=== PATIENT | male | born 1950 | race African-American/Black ===

== ENCOUNTER 2016-12-31 08:16 | Emergency (ER) | payer MEDICARE ==
[~2016-12-31] VITALS: Ht 182.9 cm; Wt 91.0 kg
[2016-12-31] MEDS ORDERED: LABE100T PO (08:24)
[2016-12-31] MEDS ORDERED: OXYC-103 PO (08:24)
[2016-12-31] MEDS ORDERED: AMLO1TAB52 PO (08:24)
[2016-12-31] MEDS ORDERED: KETOROLAC 60MG/2ML VIAL IM ONE (10:15)
[2016-12-31 15:08] VITALS: BP 112/86
== END 2016-12-31 16:16 | disposition home or self-care (01) ==
LOC: ER 08:58
DX: S72.8X2A Other fracture of left femur, initial encounter for closed fracture (principal); M17.0 Bilateral primary osteoarthritis of knee; I10 Essential (primary) hypertension; J45.909 Unspecified asthma, uncomplicated; Z98.890 Other specified postprocedural states; Z96.652 Presence of left artificial knee joint; W01.0XXA Fall on same level from slipping, tripping and stumbling without subsequent striking against object, initial encounter; Y93.89 Activity, other specified; Y92.89 Other specified places as the place of occurrence of the external cause
CPT/HCPCS: 73502; 73552; 73560; 93970; 96372; 99284; J1885

== ENCOUNTER 2020-11-09 11:20 | Inpatient (IN) | payer MEDICARE ==
[~2020-11-09] VITALS: Ht 185.4 cm; Wt 80.7 kg
[~2020-11-09 11:20] MED LIST: AMLO-361 PO; LABE100T5 PO; OXYC-103 PO
[2020-11-09] MEDS ORDERED: SODIUM CHLORIDE 0.9% 1,000 ML IV ONE (11:45)
[2020-11-09] MEDS ORDERED: ONDANSETRON HCL 4MG/2ML INJ IV ONE (11:45)
[2020-11-09 12:26] LABS: CHLORIDE 104 mEq/L (98-107)
[2020-11-09 12:33] LABS: PROTHROMBIN TIME 10.9 sec (9.6-11.0)
[2020-11-09 12:35] LABS: BASOPHILS % 0.3 % (0.0-2.0); EOSINOPHILS % 0.2 % (0.0-5.0); HEMATOCRIT. 47.6 % (42.0-52.0); HEMOGLOBIN. 15.9 g/dL (14.0-18.0); LYMPHOCYTES % 12.5 % (20.0-50.0); MEAN CORPUSCULAR HEMOGLOBIN 31.4 pg (28.0-32.0); MEAN CORPUSCULAR VOLUME 93.8 fL (80.0-94.0); MEAN PLATELET VOLUME 12.7 fl (7.4-10.4); MONOCYTES % 6.4 % (2.0-8.0); NEUTROPHILS % 80.6 % (40.0-76.0); PLATELET 137 x1000/uL (130-400); RED BLOOD CELL COUNT 5.07 mill/uL (4.7-6.1); RED CELL DISTRIBUTION WIDTH 13.3 % (11.6-14.6)
[2020-11-09 12:49] LABS: DIGOXIN 0.1 ng/mL (0.9-2.0)
[2020-11-09 16:23] LABS: CLARITY URINE CLEAR (CLEAR); COLOR URINE YELLOW (YELLOW); KETONES URINE NEGATIVE (NEGATIVE); LEUKOCYTE ESTERASE URINE NEGATIVE (NEGATIVE); NITRITE URINE NEGATIVE (NEGATIVE); OCCULT BLOOD URINE NEGATIVE (NEGATIVE); PROTEIN URINE NEGATIVE (NEGATIVE); SPECIFIC GRAVITY URINE 1.019 (1.005-1.030)
[2020-11-09 17:03] LABS: *AMPHETAMINES SCREEN URINE NEGATIVE (NEGATIVE)
[2020-11-09 17:04] LABS: *BARBITURATES SCREEN URINE NEGATIVE (NEGATIVE); *BENZODIAZEPINES SCREEN URINE NEGATIVE (NEGATIVE); *COCAINE SCREEN URINE NEGATIVE (NEGATIVE); METHADONE URINE SCREEN NEGATIVE (NEGATIVE); OPIATES URINE SCREEN NEGATIVE (NEGATIVE); PHENCYCLIDINE URINE SCREEN NEGATIVE (NEGATIVE)
[2020-11-09 17:05] LABS: CANNABINOID URINE SCREEN NEGATIVE (NEGATIVE)
[2020-11-09] MEDS ORDERED: DOCUSATE SODIUM 100MG CAPSULE PO PRN (18:45)
[2020-11-09] MEDS ORDERED: IPRATROPIUM/ALBUTEROL 0.5-3(2.5)MG/3ML NEB HHN PRN (18:45)
[2020-11-09] MEDS: HYDROMORPHONE HCL/PF 2MG/ML CPJ IV PRN (19:55)
[2020-11-09] MEDS: TRIAMTERENE/HYDROCHLOROTHIAZID 75/50MG TABLET PO SCH (19:56)
[2020-11-09 21:05] VITALS: BP 162/79
[2020-11-09 21:35] VITALS: BP 162/79
[2020-11-09] MEDS: ENOXAPARIN 40MG/0.4ML SYR SUBCUT SCH (21:37)
[2020-11-10] VITALS (7 sets, daily range): BP systolic 121–160; BP diastolic 73–85
[2020-11-10] MEDS: HYDROMORPHONE HCL/PF 2MG/ML CPJ IV PRN ×2 (00:21→20:24)
[2020-11-10] MEDS ORDERED: IBUP-2437 MT (01:23)
[2020-11-10] MEDS ORDERED: DICL25TA2 PO (01:23)
[2020-11-10 07:21] LABS: BASOPHILS % 0.7 % (0.0-2.0); EOSINOPHILS % 0.2 % (0.0-5.0); HEMATOCRIT. 45.2 % (42.0-52.0); LYMPHOCYTES % 19.6 % (20.0-50.0); MEAN CORPUSCULAR HEMOGLOBIN 31.5 pg (28.0-32.0); MEAN CORPUSCULAR VOLUME 95.1 fL (80.0-94.0); MEAN PLATELET VOLUME 12.3 fl (7.4-10.4); MONOCYTES % 10.7 % (2.0-8.0); NEUTROPHILS % 68.8 % (40.0-76.0); PLATELET 113 x1000/uL (130-400); RED BLOOD CELL COUNT 4.75 mill/uL (4.7-6.1); RED CELL DISTRIBUTION WIDTH 13.7 % (11.6-14.6)
[2020-11-10 07:35] LABS: CHLORIDE 104 mEq/L (98-107)
[2020-11-10 07:59] LABS: VITAMIN B12 SERUM 1273 pg/mL (211-911)
[2020-11-10] MEDS: TRIAMTERENE/HYDROCHLOROTHIAZID 75/50MG TABLET PO SCH (08:58)
[2020-11-10] MEDS: LOSARTAN POTASSIUM 100 MG TABLET PO SCH (08:58)
[2020-11-10] MEDS: AMLODIPINE 10MG TABLET PO SCH (08:58)
[2020-11-10] MEDS: DEXT 5%/0.45% NACL 1000ML 1,000 ML IV SCH ×2 (11:06→23:30)
[2020-11-10] MEDS ORDERED: NALOXONE HCL 0.4MG/ML VIAL IV PRN (18:15)
[2020-11-10] MEDS: ENOXAPARIN 40MG/0.4ML SYR SUBCUT SCH (20:23)
[2020-11-10] MEDS: ONDANSETRON HCL 4MG/2ML INJ IV PRN (20:23)
[2020-11-10] MEDS: NEOMYCIN-POLYMYXIN-HYDROCORTISONE 1% OTIC SUSP 10ML LEFT EAR SCH (23:54)
[2020-11-11] VITALS (8 sets, daily range): BP systolic 136–155; BP diastolic 77–102
[2020-11-11] MEDS: HYDROMORPHONE HCL/PF 2MG/ML CPJ IV PRN ×2 (01:17→21:05)
[2020-11-11] MEDS: NEOMYCIN-POLYMYXIN-HYDROCORTISONE 1% OTIC SUSP 10ML LEFT EAR SCH ×3 (05:19→17:40)
[2020-11-11 05:34] LABS: BASOPHILS % 1.1 % (0.0-2.0); EOSINOPHILS % 1.2 % (0.0-5.0); HEMATOCRIT. 48.8 % (42.0-52.0); HEMOGLOBIN. 15.9 g/dL (14.0-18.0); LYMPHOCYTES % 26.7 % (20.0-50.0); MEAN CORPUSCULAR HEMOGLOBIN 30.9 pg (28.0-32.0); MEAN CORPUSCULAR VOLUME 94.5 fL (80.0-94.0); MEAN PLATELET VOLUME 12.4 fl (7.4-10.4); PLATELET 147 x1000/uL (130-400); RED BLOOD CELL COUNT 5.16 mill/uL (4.7-6.1); RED CELL DISTRIBUTION WIDTH 13.1 % (11.6-14.6)
[2020-11-11 05:44] LABS: CHLORIDE 98 mEq/L (98-107)
[2020-11-11] MEDS ORDERED: POTASSIUM CHLORIDE 20MEQ TABLET SR PO SCH (08:00)
[2020-11-11] MEDS: LOSARTAN POTASSIUM 100 MG TABLET PO SCH (08:35)
[2020-11-11] MEDS: TRIAMTERENE/HYDROCHLOROTHIAZID 75/50MG TABLET PO SCH (08:35)
[2020-11-11] MEDS: AMLODIPINE 10MG TABLET PO SCH (08:39)
[2020-11-11] MEDS: DEXT 5%/0.45% NACL 1000ML 1,000 ML IV SCH (12:28)
[2020-11-11] MEDS: ONDANSETRON HCL 4MG/2ML INJ IV PRN (18:52)
[2020-11-11] MEDS: VALACYCLOVIR HCL 500MG TABLET PO SCH (19:01)
[2020-11-11] MEDS: ENOXAPARIN 40MG/0.4ML SYR SUBCUT SCH (20:54)
[2020-11-11] MEDS: ACETAMINOPHEN 325MG TABLET PO PRN (21:04)
[2020-11-12] VITALS: BP 134/81
[2020-11-12] MEDS: NEOMYCIN-POLYMYXIN-HYDROCORTISONE 1% OTIC SUSP 10ML LEFT EAR SCH ×4 (00:43→18:10)
[2020-11-12] MEDS: DEXT 5%/0.45% NACL 1000ML 1,000 ML IV SCH ×2 (00:43→12:12)
[2020-11-12] MEDS: HYDROMORPHONE HCL/PF 2MG/ML CPJ IV PRN ×2 (00:51→19:58)
[2020-11-12] MEDS: VALACYCLOVIR HCL 500MG TABLET PO SCH ×3 (02:48→18:10)
[2020-11-12 03:58] VITALS: BP 164/73
[2020-11-12] MEDS: ACETAMINOPHEN 325MG TABLET PO PRN (06:00)
[2020-11-12 06:16] LABS: HEMATOCRIT. 47.4 % (42.0-52.0); HEMOGLOBIN. 16.2 g/dL (14.0-18.0); MEAN CORPUSCULAR HEMOGLOBIN 31.8 pg (28.0-32.0); MEAN CORPUSCULAR VOLUME 93.1 fL (80.0-94.0); MEAN PLATELET VOLUME 12.9 fl (7.4-10.4); PLATELET 154 x1000/uL (130-400); RED BLOOD CELL COUNT 5.09 mill/uL (4.7-6.1); RED CELL DISTRIBUTION WIDTH 13.2 % (11.6-14.6)
[2020-11-12 06:24] LABS: CHLORIDE 98 mEq/L (98-107)
[2020-11-12 08:00] VITALS: BP_SYST 126; BP_SYST 131; BP_SYST 147; BP_DIAS 78; BP_DIAS 80; BP_DIAS 85
[2020-11-12] MEDS: LOSARTAN POTASSIUM 100 MG TABLET PO SCH (09:00)
[2020-11-12] MEDS: TRIAMTERENE/HYDROCHLOROTHIAZID 75/50MG TABLET PO SCH (09:03)
[2020-11-12] MEDS: AMLODIPINE 10MG TABLET PO SCH (09:04)
[2020-11-12 11:50] LABS: PLATELET ESTIMATE NORMAL
[2020-11-12 12:00] VITALS: BP 129/71
[2020-11-12] MEDS: ONDANSETRON HCL 4MG/2ML INJ IV PRN ×3 (12:12→22:39)
[2020-11-12 16:00] VITALS: BP 127/76
[2020-11-12] MEDS: LEVOFLOXACIN 500MG PREMIX 100 ML IV SCH (18:10)
[2020-11-12 20:00] VITALS: BP 121/72
[2020-11-12] MEDS: ENOXAPARIN 40MG/0.4ML SYR SUBCUT SCH (20:03)
[2020-11-13] VITALS (8 sets, daily range): BP systolic 118–156; BP diastolic 64–83
[2020-11-13] MEDS: NEOMYCIN-POLYMYXIN-HYDROCORTISONE 1% OTIC SUSP 10ML LEFT EAR SCH ×4 (00:06→18:36)
[2020-11-13] MEDS: HYDROMORPHONE HCL/PF 2MG/ML CPJ IV PRN ×4 (00:10→21:14)
[2020-11-13] MEDS: DEXT 5%/0.45% NACL 1000ML 1,000 ML IV SCH ×2 (00:18→17:02)
[2020-11-13] MEDS: VALACYCLOVIR HCL 500MG TABLET PO SCH ×3 (03:52→18:36)
[2020-11-13] MEDS: ONDANSETRON HCL 4MG/2ML INJ IV PRN ×3 (04:22→21:04)
[2020-11-13 05:12] LABS: BASOPHILS % 0.4 % (0.0-2.0); EOSINOPHILS % 0.6 % (0.0-5.0); HEMATOCRIT. 46.8 % (42.0-52.0); HEMOGLOBIN. 15.8 g/dL (14.0-18.0); LYMPHOCYTES % 19.5 % (20.0-50.0); MEAN CORPUSCULAR HEMOGLOBIN 31.7 pg (28.0-32.0); MEAN CORPUSCULAR VOLUME 93.8 fL (80.0-94.0); MONOCYTES % 11.2 % (2.0-8.0); NEUTROPHILS % 68.3 % (40.0-76.0); PLATELET 156 x1000/uL (130-400); RED BLOOD CELL COUNT 4.99 mill/uL (4.7-6.1); RED CELL DISTRIBUTION WIDTH 13.3 % (11.6-14.6)
[2020-11-13 05:19] LABS: CHLORIDE 95 mEq/L (98-107)
[2020-11-13 05:36] LABS: HDL CHOLESTEROL 70 mg/dL (40-59)
[2020-11-13 05:37] LABS: LDL CHOLESTEROL 88 mg/dL (5-100)
[2020-11-13] MEDS: AMLODIPINE 10MG TABLET PO SCH (09:00)
[2020-11-13] MEDS: LOSARTAN POTASSIUM 100 MG TABLET PO SCH (09:00)
[2020-11-13] MEDS: TRIAMTERENE/HYDROCHLOROTHIAZID 75/50MG TABLET PO SCH (09:06)
[2020-11-13] MEDS: ACETAMINOPHEN 325MG TABLET PO PRN (09:09)
[2020-11-13] MEDS: LEVOFLOXACIN 500MG PREMIX 100 ML IV SCH (18:36)
[2020-11-13] MEDS: ENOXAPARIN 40MG/0.4ML SYR SUBCUT SCH (20:58)
[2020-11-14] VITALS (8 sets, daily range): BP systolic 108–158; BP diastolic 51–84
[2020-11-14] MEDS: NEOMYCIN-POLYMYXIN-HYDROCORTISONE 1% OTIC SUSP 10ML LEFT EAR SCH ×5 (00:38→23:49)
[2020-11-14] MEDS: DEXT 5%/0.45% NACL 1000ML 1,000 ML IV SCH ×2 (01:46→16:02)
[2020-11-14] MEDS: HYDROMORPHONE HCL/PF 2MG/ML CPJ IV PRN ×2 (03:25→16:43)
[2020-11-14] MEDS: VALACYCLOVIR HCL 500MG TABLET PO SCH ×3 (03:26→21:17)
[2020-11-14] MEDS: TRIAMTERENE/HYDROCHLOROTHIAZID 75/50MG TABLET PO SCH (09:31)
[2020-11-14] MEDS: AMLODIPINE 10MG TABLET PO SCH (09:32)
[2020-11-14] MEDS: LOSARTAN POTASSIUM 100 MG TABLET PO SCH (09:32)
[2020-11-14] MEDS: ONDANSETRON HCL 4MG/2ML INJ IV PRN ×2 (16:02→21:18)
[2020-11-14] MEDS: LEVOFLOXACIN 500MG PREMIX 100 ML IV SCH (18:00)
[2020-11-14] MEDS: CEFTRIAXONE 2 G in DEXTROSE 5% WATER 50 ML IV SCH (20:00)
[2020-11-14] MEDS: ENOXAPARIN 40MG/0.4ML SYR SUBCUT SCH (21:17)
[2020-11-15] VITALS (7 sets, daily range): BP systolic 105–145; BP diastolic 60–82
[2020-11-15] MEDS: VALACYCLOVIR HCL 500MG TABLET PO SCH ×3 (03:23→19:32)
[2020-11-15] MEDS: DEXT 5%/0.45% NACL 1000ML 1,000 ML IV SCH ×2 (03:24→19:02)
[2020-11-15] MEDS: ACETAMINOPHEN 325MG TABLET PO PRN ×2 (03:24→19:12)
[2020-11-15] MEDS: NEOMYCIN-POLYMYXIN-HYDROCORTISONE 1% OTIC SUSP 10ML LEFT EAR SCH ×3 (06:53→19:33)
[2020-11-15] MEDS: TRIAMTERENE/HYDROCHLOROTHIAZID 75/50MG TABLET PO SCH (08:06)
[2020-11-15] MEDS: LOSARTAN POTASSIUM 100 MG TABLET PO SCH (08:06)
[2020-11-15] MEDS: AMLODIPINE 10MG TABLET PO SCH (08:06)
[2020-11-15] MEDS ORDERED: LEVOFLOXACIN 500MG TABLET PO SCH (12:00)
[2020-11-15] MEDS: ENOXAPARIN 40MG/0.4ML SYR SUBCUT SCH (20:12)
[2020-11-15] MEDS: ONDANSETRON HCL 4MG/2ML INJ IV PRN (20:12)
[2020-11-15] MEDS: CEFTRIAXONE 2 G in DEXTROSE 5% WATER 50 ML IV SCH (20:12)
[2020-11-15] MEDS ORDERED: AMOX1TAB16 PO (20:53)
[2020-11-15] MEDS ORDERED: NEOM10DR11 LEFT EAR (20:53)
[2020-11-15] MEDS ORDERED: VALA100044 MT (20:53)
[2020-11-15] MEDS ORDERED: MECLIZINE 25MG TABLET PO PRN (22:30)
[2020-11-16 00:32] VITALS: BP 114/62
[2020-11-16] MEDS: NEOMYCIN-POLYMYXIN-HYDROCORTISONE 1% OTIC SUSP 10ML LEFT EAR SCH ×3 (00:51→11:31)
[2020-11-16] MEDS: ACETAMINOPHEN 325MG TABLET PO PRN (00:54)
[2020-11-16 04:00] VITALS: BP 120/68
[2020-11-16] MEDS: DEXT 5%/0.45% NACL 1000ML 1,000 ML IV SCH (05:27)
[2020-11-16] MEDS: VALACYCLOVIR HCL 500MG TABLET PO SCH ×2 (05:27→11:31)
[2020-11-16 08:00] VITALS: BP 120/75
[2020-11-16] MEDS: LOSARTAN POTASSIUM 100 MG TABLET PO SCH (08:46)
[2020-11-16] MEDS: TRIAMTERENE/HYDROCHLOROTHIAZID 75/50MG TABLET PO SCH (08:46)
[2020-11-16] MEDS: AMLODIPINE 10MG TABLET PO SCH (08:46)
[2020-11-16] MEDS: ONDANSETRON HCL 4MG/2ML INJ IV PRN (09:29)
[2020-11-16 11:12] LABS: HEMATOCRIT. 46.3 % (42.0-52.0); HEMOGLOBIN. 15.8 g/dL (14.0-18.0); MEAN CORPUSCULAR HEMOGLOBIN 31.7 pg (28.0-32.0); MEAN CORPUSCULAR VOLUME 92.7 fL (80.0-94.0); MEAN PLATELET VOLUME 11.7 fl (7.4-10.4); PLATELET 189 x1000/uL (130-400); RED BLOOD CELL COUNT 4.99 mill/uL (4.7-6.1); RED CELL DISTRIBUTION WIDTH 12.9 % (11.6-14.6)
[2020-11-16 11:26] LABS: CHLORIDE 95 mEq/L (98-107)
[2020-11-16 12:00] VITALS: BP_SYST 108; BP_SYST 111; BP_SYST 114; BP_DIAS 57; BP_DIAS 59; BP_DIAS 72
[2020-11-16 12:32] VITALS: BP 108/57
[2020-11-16 13:00] VITALS: BP 108/57
[2020-11-16 15:47] LABS: PLATELET ESTIMATE NORMAL
== END 2020-11-16 14:50 | disposition home health service (06) | DRG 74 ==
LOC: ER 11:20 → EDBEDREQ 12:58 → EDBEDREQTM 12:58 → 6WST 15:33 → EDBEDREQ 15:40 → EDBEDREQTM 15:40 → ENRESERV 20:30
PROVIDERS: ADMIT Internal Medicine Pulmonary Disease; ATTEND Internal Medicine Pulmonary Disease
PROC: 4A10X4Z Monitoring of Central Nervous Electrical Activity, External Approach (ICD-10-PCS; principal; 2020-11-11)
DX: G90.8 Other disorders of autonomic nervous system (principal); I67.82 Cerebral ischemia; B02.21 Postherpetic geniculate ganglionitis; E78.5 Hyperlipidemia, unspecified; J45.909 Unspecified asthma, uncomplicated; E86.0 Dehydration; E78.00 Pure hypercholesterolemia, unspecified; I10 Essential (primary) hypertension; R00.1 Bradycardia, unspecified; R94.31 Abnormal electrocardiogram [ECG] [EKG]; E87.6 Hypokalemia; H60.92 Unspecified otitis externa, left ear; H91.92 Unspecified hearing loss, left ear; I35.2 Nonrheumatic aortic (valve) stenosis with insufficiency; Z87.820 Personal history of traumatic brain injury; Z79.899 Other long term (current) drug therapy; I25.2 Old myocardial infarction; Z87.828 Personal history of other (healed) physical injury and trauma
CPT/HCPCS: 36415; 71045; 80048; 80053; 80061; 80162; 80305; 81003; 82607; 83735; 83880; 84443; 84484; 85025; 93005; 93306; 95816; 97161; 99291; J0696; J1170; J1650; J1956; J2405; J7030; J7060; J8597